=== PATIENT | female | born 1995 | race Caucasian/White ===

== ENCOUNTER 2016-12-01 09:27 | Emergency (ER) | payer OTHER ==
[2016-12-01] MEDS ORDERED: DEXAMETHASONE 10 MG/ML VIAL PO STA (10:04)
[2016-12-01] MEDS ORDERED: IPRATROPIUM/ALBUTEROL 3 ML NEB INH STA (10:04)
[2016-12-01] MEDS ORDERED: DEXAMETHASONE 10 MG/ML VIAL ONE (10:10)
[2016-12-01] MEDS ORDERED: CHERRY SYRUP 10 ML UDC PO ONE (10:11)
[2016-12-01] MEDS ORDERED: IPRATROPIUM/ALBUTEROL 3 ML NEB INH ONE (10:27)
== END 2016-12-01 11:51 | disposition home or self-care (01) ==
DX: J20.9 Acute bronchitis, unspecified (principal); R51 Headache; R11.0 Nausea
CPT/HCPCS: 71020; 94640; 99283; 99284; A9270; J7620

== ENCOUNTER 2017-05-13 08:52 | Outpatient (CLI) | payer OTHER ==
[2017-05-13] MEDS ORDERED: GADOBUTROL 7.5 MMOL/7.5 ML VIAL IVP ONE (11:23)
--- NOTE | 2017-05-14 00:44 | MRI Report ---
MR ANGIOGRAM ABDOMEN WITH AND WITHOUT IV CONTRAST EXAM DATE: 05/13/2017 11:26 AM. CLINICAL HISTORY: Hypertension. COMPARISON: None. TECHNIQUE: Multiplanar breath-hold T1, T2, and DWI sequences obtained through the abdomen [place] [facility] [place] Images obtained prior to and post administration of intravenous contrast. 3-D MR angiogram. FINDINGS: Abdominal aorta and the major branches: Normal caliber of the abdominal aorta and branches. No eviden ce of a mesenteric or renal artery stenosis. Solitary bilateral renal arteries appear normal. Liver: Peripheral right liver T2 hyperintense 40 x 37 x 41 mm lesion is slightly hyperintense on the T1 postcontrast images with possible central scar. Biliary system: Gallbladder and bile ducts appear normal. Pancreas: Normal appearance. Kidneys: Simple left renal 3 cm cyst. Tiny right renal cyst. No hydronephrosis. Spleen: Normal appearance. Adrenals: Normal appearance. Visualized peritoneal cavity and bowel: Unremarkable. No free fluid seen. Other: Unremarkable. IMPRESSION: 1. Normal MR angiogram of the abdomen. No evidence of renal artery stenosis. 2. Right liver 4 cm mass is probably focal nodular hyperplasia. Given size, suggest MRI surveillance at 6 months initially with MRI liver protocol for complete characterization. [facility] Referring Provider Line: [phone] SITE ID: [id number]
== END 2017-05-13 08:53 | disposition home or self-care (01) ==
LOC: DI 08:52
PROVIDERS: ATTEND General Practice
DX: I10 Essential (primary) hypertension (principal); R16.0 Hepatomegaly, not elsewhere classified
CPT/HCPCS: 74185; A9585

== ENCOUNTER 2018-03-10 12:18 | Outpatient (CLI) | payer OTHER ==
[~2018-03-10 12:18] MED LIST: GADOBUTROL 7.5 MMOL/7.5 ML VIAL ONE
[2018-03-10] MEDS ORDERED: GADOBUTROL 7.5 MMOL/7.5 ML VIAL IVP ONE ×2 (13:47)
--- NOTE | 2018-03-12 08:45 | MRI Report ---
Procedure Date: 03/10/2018 Accession Number: [id number] / [id number] Procedure: MRI - Abdomen W/WO CPT Code: FULL RESULT: EXAM: MR ABDOMEN WITH AND WITHOUT CONTRAST (MR LIVER) EXAM DATE: 03/10/2018 01:36 PM. CLINICAL HISTORY: Hepatomegaly. Liver lesion on prior MRA. COMPARISON: Abdominal MR angiography 05/13/2017. TECHNIQUE: Multiplanar breath-hold T1, T2, and DWI sequences obtained through the abdomen on an MR scanner. Images obtained before and after administration of 6 mL Gadavist intravenous contrast. Multiphase postcontrast images obtained of the liver and abdomen. FINDINGS: Lung Bases: Unremarkable. Liver: The liver has normal size, morphology, signal and enhancement. Smooth liver contour. No fatty infiltration. Stable peripheral right liver lobe mildly T2 hyperintense lesion along junction of segments 7 and 8; measuring 4.4 x 3.5 cm on series 1201, previously 4.4 x 4.0 cm. The lesion measures 3.6 cm craniocaudal on series 501 T2 images, previously 3.8 cm. No significant interval change. Lesion is somewhat difficult to measure due to partially lobulated contours. There is avid arterial phase enhancement with fading on subsequent series. However, no washout relative to adjacent liver. Potential central scar. No additional liver lesions identified. Gallbladder: The gallbladder is partially distended and appears normal with no wall thickening or stone. Pancreas: The pancreas appears normal with no mass or ductal dilatation. Spleen: The spleen appears normal. Spleen measures up to 11 cm. Kidneys and Adrenals: The kidneys appear normal with no mass or hydronephrosis. 3.1 cm simple left upper renal cyst. The adrenals appear normal. Bowel: The small bowel and colon appear normal with no inflammation or obstruction. Retroperitoneum: The retroperitoneal structures appear normal with no mass or lymphadenopathy. IMPRESSION: 1. Stable peripheral right liver lobe lesion compatible with focal nodular hyperplasia. 2. Simple left renal cyst. [facility]
== END 2018-03-10 12:19 | disposition home or self-care (01) ==
LOC: DI 12:18
PROVIDERS: ATTEND General Practice
DX: K76.9 Liver disease, unspecified (principal); N28.1 Cyst of kidney, acquired
CPT/HCPCS: 74183; A9585

== ENCOUNTER 2018-04-07 05:43 | Emergency (ER) | payer OTHER ==
--- NOTE | 2018-04-07 06:08 | ED Physician Documentation ---
PD HPI FEMALE - Stated complaint Stated Complaint: KIDNEY/PELVIC PAIN - Chief complaint Chief Complaint: Abd Pain - History obtained from History obtained from: Patient - History of Present Illness Timing - onset: How many months ago (3-4) Timing - duration: Months Pain level max: 2 Associated symptoms: Pelvic pain, Vaginal bleeding, Vaginal discharge, Other ( right flank pain). No: Fever Contributing factors: Not sexually active. No: Similar symptoms before: No diagnosis, Work up / diagnostics (has had significant outpatient w/u including MRI A/P x 2 (most recently one month ago), STD testing (negative results), trials of antifungals and antibiotics (for possible yeast infection and BV, respectively). thus far, no specific diagnosis nor improvement with this measures) - Additional information Additional information: has had several months of pelvic pain, irregular vaginal bleeding, vaginal discharge. tonight she contacted a medical advice hotline and was advised to go to ED, as she has approximately 3-4 days of right flank and RLQ pain, which is a new symptom for her. Review of Systems Constitutional: reports: Reviewed and negative Cardiac: reports: Reviewed and negative Respiratory: reports: Reviewed and negative GI: reports: Abdominal Pain. denies: Nausea, Vomiting, Constipation, Diarrhea : reports: Dysuria, Discharge, Irregular menses (coincided with cessation of BCP (which she was advised to do because she was told the BCP might be a factor in abnormal finding on MRI (liver lesion))). denies: Frequency PD PAST MEDICAL HISTORY - Past Medical History Cardiovascular: None Respiratory: None Endocrine/Autoimmune: None - Past Surgical History Past Surgical History: Yes HEENT: Other - Present Medications Home Medications: Ambulatory Orders Medication Instructions Recorded Confirmed Control 1 tab PO DAILY 06/21/16 12/01/16 Albuterol Sulfate [Proventil Hfa 1 - 2 puffs INH Q4H PRN #1 inhaler 12/01/16 Inhaler] Benzonatate [Tessalon Perle] 100 mg PO BID #14 capsule 12/01/16 Inhaler, Assist Devices [Aerovent 1 each MC PRN PRN #1 spacer 12/01/16 Plus] Omeprazole 0 mg PO DAILY 12/01/16 12/01/16 - Allergies Allergies/Adverse Reactions: Allergies Allergy/AdvReac Type Severity Reaction Status Date / Time No Known Drug Allergies Allergy Verified 04/07/18 05:57 - Social History Does the pt smoke?: No Smoking Status: Never smoker Does the pt drink ETOH?: No Does the pt have substance abuse?: No - Immunizations Immunizations are current?: Yes - POLST Patient has POLST: No PD ED PE NORMAL - Vitals Vital signs reviewed: Yes - General General: Alert and oriented X 3, No acute distress, Well developed/nourished - Cardiac Cardiac: RRR, No murmur - Respiratory Respiratory: No respiratory distress, Clear bilaterally - Abdomen Abdomen: Soft, Non distended, Other (mild RLQ tenderness) - Back Back: No CVA TTP - Derm Derm: Normal color, Warm and dry, No rash Results - Vitals Vitals: Vital Signs - 24 hr 04/07/18 04/07/18 04/07/18 05:54 06:50 07:04 Temperature 36.8 C Heart Rate 69 Respiratory 17 16 16 Rate Blood Pressure 127/80 O2 Saturation 97 04/07/18 08:35 Temperature Heart Rate 63 Respiratory 16 Rate Blood Pressure 128/95 H O2 Saturation 97 Oxygen O2 Source Room air - Labs Labs: Laboratory Tests 04/07/18 04/07/18 04/07/18 06:00 06:55 06:55 WBC 5.9 RBC 4.62 Hgb 13.0 Hct 38.5 MCV 83.3 MCH 28.1 MCHC 33.8 RDW 13.8 Plt Count 272 MPV 7.9 Neut # (Auto) 2.4 Lymph # (Auto) 2.7 [place] # (Auto) 0.6 Eos # (Auto) 0.2 Baso # (Auto) 0.0 Absolute Nucleated RBC 0.00 Nucleated RBC % 0.0 Sodium 138 Potassium 3.0 L Chloride 103 Carbon Dioxide 27 Anion Gap 8.0 BUN 7 Creatinine 0.6 Estimated GFR (MDRD) 125 Glucose 114 H Calcium 9.3 Total Bilirubin 1.3 H AST 49 H ALT 60 Alkaline Phosphatase 59 Total Protein 7.3 Albumin 3.8 Globulin 3.5 Albumin/Globulin Ratio 1.1 Lipase 27 Urine Color LIGHT YELLOW Urine Clarity CLEAR Urine pH 6.5 Ur Specific [place] <=1.005 Urine Protein NEGATIVE Urine Glucose (UA) NEGATIVE Urine Ketones NEGATIVE Urine Occult Blood NEGATIVE Urine Nitrite NEGATIVE Urine Bilirubin NEGATIVE Urine Urobilinogen 0.2 (NORMAL) Ur Leukocyte Esterase NEGATIVE Ur Microscopic Review NOT INDICATED Urine Culture Comments NOT INDICATED Urine HCG, Qual NEGATIVE - Rads (name of study) CT A/P Radiology: Prelim report reviewed, See rad report PD MEDICAL DECISION MAKING - ED course Complexity details: reviewed results, re-evaluated patient, considered differential, d/w patient ED course: NAD during ED stay and declined analgesics, both in ED and as rx - Sepsis Event Vital Signs: Vital Signs - 24 hr 04/07/18 04/07/18 04/07/18 05:54 06:50 07:04 Temperature 36.8 C Heart Rate 69 Respiratory 17 16 16 Rate Blood Pressure 127/80 O2 Saturation 97 04/07/18 08:35 Temperature Heart Rate 63 Respiratory 16 Rate Blood Pressure 128/95 H O2 Saturation 97 Oxygen O2 Source Room air Departure - Departure Disposition: 01 Home, Self Care Clinical Impression: Pelvic pain Condition: Good Instructions: ED Pelvic Pain [facility] Follow-Up: JASON PAGAN III, MD [Primary Care Provider] - Discharge Date/Time: 04/07/18 08:45
[2018-04-07 06:19] LABS: BILIRUBIN,URINE NEGATIVE (NEGATIVE); GLUCOSE, URINE (UA) NEGATIVE (NEGATIVE); KETONES,URINE (UA) NEGATIVE (NEGATIVE); LEUKOCYTE ESTERASE, URINE NEGATIVE (NEGATIVE); NITRITE,URINE NEGATIVE (NEGATIVE); OCCULT BLOOD,URINE NEGATIVE (NEGATIVE); PH,URINE 6.5 PH (5.0-7.5); PROTEIN,URINE NEGATIVE (NEGATIVE); UROBILINOGEN,URINE 0.2 (NORMAL) E.U./dL (NORMAL)
[2018-04-07 06:20] LABS: CLARITY,URINE CLEAR (CLEAR); HCG UR QUAL NEGATIVE
[2018-04-07 07:04] LABS: BASOPHILS % (AUTO) 0.7 %; EOSINOPHILS # (AUTO) 0.2 10^3/uL (0.0-0.7); EOSINOPHILS % (AUTO) 3.8 %; LYMPHOCYTES # (AUTO) 2.7 10^3/uL (1.5-3.5); LYMPHOCYTES % (AUTO) 45.8 %; MEAN CORPUSCULAR HEMOGLOBIN 28.1 pg (27.0-31.0); MEAN CORPUSCULAR HGB CONC 33.8 g/dL (32.0-36.0); MEAN CORPUSCULAR VOLUME 83.3 fL (81.0-99.0); MEAN PLATELET VOLUME 7.9 fL (7.9-10.8); MONOCYTES # (AUTO) 0.6 10^3/uL (0.0-1.0); MONOCYTES % (AUTO) 9.7 %; NEUTROPHILS # (AUTO) 2.4 10^3/uL (1.5-6.6); PLT - PLATELET COUNT 272 10^3/uL (130-450); RED BLOOD COUNT 4.62 10^6/uL (4.20-5.40); RED CELL DISTRIBUTION WIDTH 13.8 % (12.0-15.0); WHITE BLOOD COUNT 5.9 x10^3/uL (4.8-10.8)
[2018-04-07 07:17] LABS: ALBUMIN 3.8 g/dL (3.2-5.5); ALBUMIN/GLOBULIN RATIO 1.1 (1.0-2.2); BILIRUBIN,TOTAL 1.3 mg/dL (0.2-1.0); CALCIUM 9.3 mg/dL (8.5-10.3); CREATININE 0.6 mg/dL (0.4-1.0); TOTAL PROTEIN 7.3 g/dL (6.7-8.2)
--- NOTE | 2018-04-07 08:00 | CT Report ---
Procedure Date: 04/07/2018 Accession Number: [id number] / [id number] Procedure: CT - Abdomen/Pelvis W/O CPT Code: FULL RESULT: EXAM: CT ABDOMEN AND PELVIS EXAM DATE: 04/07/2018 07:06 AM. CLINICAL HISTORY: Right flank pain. COMPARISONS: MRI 03/10/2018. TECHNIQUE: Routine helical CT imaging was performed through the abdomen and pelvis. IV contrast: No. Enteric contrast: No. Reconstructions: Coronal and sagittal. In accordance with CT protocol optimization, one or more of the following dose reduction techniques were utilized for this exam: automated exposure control, adjustment of mA and/or KV based on patient size, or use of iterative reconstructive technique. FINDINGS: Lung Bases: Unremarkable. Liver: In the right hepatic lobe, an ill-defined hypodense lesion measures approximately 4 cm, corresponding to mass seen on recent MRI 03/10/2018 with imaging suggestive of focal nodular hyperplasia. Gallbladder/Bile Ducts: Unremarkable. Spleen: Normal. Pancreas: Normal. Adrenal Glands: Normal. Kidneys: A left renal cyst measures 2.6 cm. Punctate nonobstructive bilateral renal calculi measure 2-3 mm. No hydronephrosis or hydroureter bilaterally. Probable phlebolith in the right pelvis measures 0.7 cm (axial image 111). Peritoneal Cavity/Bowel: No free fluid, free air or adenopathy. No masses or acute inflammatory process. The appendix is not visualized, however no secondary signs of inflammation in the right lower quadrant. Pelvic Organs: The bladder and visualized pelvic organs are within normal limits. Vasculature: No aneurysms or other significant abnormality. Bones: No significant abnormality. Other: None. IMPRESSION: Small bilateral nonobstructive renal calculi. No evidence for hydronephrosis or hydroureter. [facility]
[2018-04-07] MEDS ORDERED: POTASSIUM BICARB 25 MEQ TABLET PO STA ×2 (08:25→08:26)
[2018-04-07 08:36] VITALS: BP 128/95
== END 2018-04-07 08:45 | disposition home or self-care (01) ==
LOC: ED 05:43
DX: R10.2 Pelvic and perineal pain (principal); N20.0 Calculus of kidney
CPT/HCPCS: 74176; 80053; 81003; 81025; 83690; 85025; 99283; A9270; 36415; 81001; 87086

== ENCOUNTER 2018-11-27 03:10 | Emergency (ER) | payer OTHER ==
--- NOTE | 2018-11-27 03:13 | ED Physician Documentation ---
PD HPI URI - Stated complaint Stated Complaint: SORE THROAT - History of Present Illness Timing - onset: How many days ago (2) Timing duration: Days (2) Timing details: Abrupt onset, Still present Associated symptoms: Fever, Sinus pain, Sore throat, Swollen nodes. No: Nasal congestion, Productive cough Contributing factors: Travel (was in [place] for a week and returned few days ago.) Similar symptoms before: Has not had sx before Review of Systems Constitutional: reports: Fever, Myalgias Nose: reports: Sinus pressure / pain. 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 : None HEENT: None Psych: None Musculoskeletal: None - Past Surgical History Past Surgical History: Yes HEENT: Other - Present Medications Home Medications: Ambulatory Orders Medication Instructions Recorded Confirmed Control 1 tab PO DAILY 06/21/16 12/01/16 Albuterol Sulfate [Proventil Hfa 1 - 2 puffs INH Q4H PRN #1 inhaler 12/01/16 Inhaler] Benzonatate [Tessalon Perle] 100 mg PO BID #14 capsule 12/01/16 Inhaler, Assist Devices [Aerovent 1 each MC PRN PRN #1 spacer 12/01/16 Plus] Omeprazole 0 mg PO DAILY 12/01/16 12/01/16 Cephalexin [Keflex] 500 mg PO TID #21 capsule 11/27/18 Dexamethasone [Decadron] 4 mg PO DAILY #5 tablet 11/27/18 Hydrocodone/Acetaminophen [[place] 1 each PO Q6H PRN #15 tablet 11/27/18 5-325 Tablet] - Allergies Allergies/Adverse Reactions: Allergies Allergy/AdvReac Type Severity Reaction Status Date / Time No Known Drug Allergies Allergy Verified 11/27/18 03:19 - Social History Does the pt smoke?: No Smoking Status: Never smoker Does the pt drink ETOH?: No Does the pt have substance abuse?: No - Immunizations Immunizations are current?: Yes - POLST Patient has POLST: No PD ED PE NORMAL - Vitals Vital signs reviewed: Yes - General General: Alert and oriented X 3, No acute distress, Well developed/nourished - HEENT HEENT: No: Pharynx benign (redness without exudate, but she is spitting up saliva at times due to the pain of it. No obvious peritonsillar swelling. ) - Neck Neck: Supple, no meningeal sign, Other (anterior adenopathy which is tender. ) - Cardiac Cardiac: RRR, No murmur - Respiratory Respiratory: Clear bilaterally - Abdomen Abdomen: Soft, Non tender - Derm Derm: Normal color, Warm and dry, No rash Results - Vitals Vitals: Vital Signs - 24 hr 11/27/18 03:17 Temperature 36.9 C Heart Rate 84 Respiratory 16 Rate Blood Pressure 128/89 H O2 Saturation 99 Oxygen O2 Source Room air - Labs Labs: Laboratory Tests 11/27/18 03:24 Group A Strep Rapid Negative PD MEDICAL DECISION MAKING - ED course Complexity details: considered differential (rapid test is negative, but her symptoms are concerning for strep or early peritonsillar infection, so consider more group c strep or such. I will treat empirically pending cultures. ), d/w patient Departure - Departure Disposition: Home, Self Care Clinical Impression: Acute infective pharyngitis Condition: Stable Record reviewed to determine appropriate education?: Yes Instructions: ED Strep Pharyngitis Poss Follow-Up: JASON PAGAN III, MD [Primary Care Provider] - Prescriptions: Cephalexin [Keflex] 500 mg PO TID #21 capsule Dexamethasone [Decadron] 4 mg PO DAILY #5 tablet Hydrocodone/Acetaminophen [[place] 5-325 Tablet] 1 each PO Q6H PRN #15 tablet PRN Reason: Pain Comments: Your rapid strep test is negative but symptoms are suspicious for bacterial infection. We can treat her with a steroid for inflammation and added pain medicine. These would be appropriate for viral or bacterial. We can start an antibiotic cephalexin to cover for possible strep at least pending the culture result in a couple of days. If the culture is negative as well then you can stop the antibiotics. Follow-up with your primary care in the next couple of days if not improving. Drink lots of fluids and stay well-hydrated and use Tylenol or ibuprofen if needed for fevers or pains. Add hydrocodone if needed for worse pain. Forms: Activity restrictions
[2018-11-27] MEDS ORDERED: DEXAMETHASONE 10 MG/ML VIAL PO STA (03:33)
[2018-11-27] MEDS ORDERED: BENZONATATE 100 MG CAPSULE PO STA (03:33)
[2018-11-27] MEDS ORDERED: diphenhydrAMINE ELIXIR 25 MG/10 ML UDC PO STA (03:33)
[2018-11-27] MEDS ORDERED: HYDROcod/ACETAM 5/325 MG TABLET PO STA (03:33)
[2018-11-27] MEDS ORDERED: cephALEXin 250 MG CAPSULE PO STA (03:50)
[2018-11-27 03:58] VITALS: BP 131/87
== END 2018-11-27 04:02 | disposition home or self-care (01) ==
LOC: ED 03:10
DX: J02.9 Acute pharyngitis, unspecified (principal)
CPT/HCPCS: 87070; 87430; 99283; A9270

== ENCOUNTER 2019-07-04 08:42 | Emergency (ER) | payer OTHER ==
--- NOTE | 2019-07-04 09:00 | ED Physician Documentation ---
PD HPI UPPER EXT INJURY - Stated complaint Stated Complaint: HAND INJURY - Chief complaint Chief Complaint: Trauma Ext - History obtained from History obtained from: Patient - History of Present Illness Location: Left, Hand Type of injury: Other (Patient states that she had her left hand against the wall today. Occurred approximately 2 hours ago.) Timing - onset: Today Timing - duration: Hours (2) Timing - details: Abrupt onset Pain level max: 8 Pain level now: 5 Improved by: Rest, Ice, Immobilization Worsened by: Moving, Palpating Associated symptoms: Swelling, Discolored (Bruising). 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 : None HEENT: None Psych: None Musculoskeletal: None - Past Surgical History Past Surgical History: Yes HEENT: Other - Present Medications Home Medications: Ambulatory Orders Medication Instructions Recorded Confirmed Control 1 tab PO DAILY 06/21/16 12/01/16 Albuterol Sulfate [Proventil Hfa 1 - 2 puffs INH Q4H PRN #1 inhaler 12/01/16 Inhaler] Benzonatate [Tessalon Perle] 100 mg PO BID #14 capsule 12/01/16 Inhaler, Assist Devices [Aerovent 1 each MC PRN PRN #1 spacer 12/01/16 Plus] Omeprazole 0 mg PO DAILY 12/01/16 12/01/16 Cephalexin [Keflex] 500 mg PO TID #21 capsule 11/27/18 Hydrocodone/Acetaminophen [[place] 1 each PO Q6H PRN #15 tablet 11/27/18 5-325 Tablet] dexAMETHasone [Decadron] 4 mg PO DAILY #5 tablet 11/27/18 Ibuprofen [Motrin] 800 mg PO Q8H PRN #30 tablet 07/04/19 - Allergies Allergies/Adverse Reactions: Allergies Allergy/AdvReac Type Severity Reaction Status Date / Time No Known Drug Allergies Allergy Verified 07/04/19 08:50 - Social History Does the pt smoke?: No Smoking Status: Never smoker Does the pt drink ETOH?: No Does the pt have substance abuse?: No - Immunizations Immunizations are current?: Yes - POLST Patient has POLST: No PD ED PE NORMAL - Vitals Vital signs reviewed: Yes - General General: Alert and oriented X 3, No acute distress - HEENT HEENT: Moist mucous membranes - Neck Neck: Supple, no meningeal sign - Derm Derm: Warm and dry - Extremities Extremities: Other (Left hand tenderness palpation, swelling and ecchymosis to the distal aspect of the left fourth and fifth metacarpal. Neurovascular intact. No tenderness over the wrist or forearm) - Neuro Neuro: Alert and oriented X 3 Results - Vitals Vitals: Vital Signs - 24 hr 07/04/19 07/04/19 08:48 10:28 Temperature 36.8 C 36.6 C Heart Rate 82 68 Respiratory 14 18 Rate Blood Pressure 128/96 H 139/85 H O2 Saturation 98 100 Oxygen O2 Source Room air - Rads (name of study) Left hand x-ray Radiology: Prelim report reviewed, EMP read contemporaneously, See rad report (Mildly impacted and angulated fifth metacarpal neck fracture. ) Procedures - Splint (location) L hand Splint applied by: Physician, Tech Type of splint: Fiberglass, Ulnar gutter Other: Patient tolerated well, No complications, Neurovascular intact, Sling provided PD MEDICAL DECISION MAKING - ED course Complexity details: reviewed results, re-evaluated patient, considered differ ential, d/w patient ED course: Patient with a left fifth metacarpal fracture, acutely angulated. Placed in an ulnar gutter splint. Neurovascularly intact. Will follow-up with orthopedics. Patient counseled regarding signs and symptoms for which I believe and urgent re-evaluation would be necessary. Patient with good understanding of and agreement to plan and is comfortable going home at this time This document was made in part using voice recognition software. While efforts are made to proofread this document, sound alike and grammatical errors may occur. Departure - Departure Disposition: 01 Home, Self Care Clinical Impression: Fracture of fifth metacarpal bone of left hand Qualifiers: Encounter type: initial encounter Fracture type: closed Metacarpal location: unspecified portion of metacarpal Fracture alignment: nondisplaced Qualified Code(s): S62.307A - Unspecified fracture of fifth metacarpal bone, left hand, initial encounter for closed fracture Condition: Good Instructions: ED Fx Hand Closed Follow-Up: JASON PAGAN III, MD [Primary Care Provider] - Within 1 week Prescriptions: Ibuprofen [Motrin] 800 mg PO Q8H PRN #30 tablet PRN Reason: PAIN &/OR FEVER Comments: Keep the splint in place. Return if you worsen. Follow-up with your doctor and orthopedist when you return from leave. Discharge Date/Time: 07/04/19 11:46
--- NOTE | 2019-07-04 09:44 | XRAY Report ---
Reason: L hand pain s/p hitting a wall Procedure Date: 07/04/2019 Accession Number: [id number] / [id number] Procedure: XR - Hand 3 View LT CPT Code: FULL RESULT: EXAM: LEFT HAND RADIOGRAPHY EXAM DATE: 07/04/2019 09:21 AM. CLINICAL HISTORY: Left hand pain after punching a wall. COMPARISON: None. TECHNIQUE: 3 views. FINDINGS: Bones: Mildly impacted fracture of the fifth metacarpal neck, with mild anterior angulation at the fracture site. Joints: Normal. No subluxations. Soft Tissues: Swelling overlying the fracture site. IMPRESSION: Mildly impacted and angulated fifth metacarpal neck fracture. [facility]
[2019-07-04 10:28] VITALS: BP 139/85
== END 2019-07-04 11:46 | disposition home or self-care (01) ==
LOC: ED 08:42
DX: S62.337A Displaced fracture of neck of fifth metacarpal bone, left hand, initial encounter for closed fracture (principal); W22.01XA Walked into wall, initial encounter
CPT/HCPCS: 29125; 99283

== ENCOUNTER 2020-03-26 06:24 | Emergency (ER) | payer OTHER ==
--- NOTE | 2020-03-26 07:02 | ED Physician Documentation ---
History of Present Illness - Stated complaint Stated Complaint: R/L HAND INJURY - Chief complaint Chief Complaint: Ext Problem - Additonal information Additional information: Patient comes emergency department complaining of pain in bilateral hands over the third MCP joints after punching her refrigerator multiple times yesterday. Patient states this happened about 22:30 last night. She states that she became upset after hearing and audio of a disturbing event that happened to her personal friend and coworker, and started punching her refrigerator. She states this lasted 10 to 15 minutes. Patient states that her joints were more swollen last night than they are now, but that she still has pain with movement. However, she does note that despite some swelling and bruising, she does have full range of motion of her fingers at the IP and MCP joints. Patient denies wrist pain or elbow pain. She is not injured in any other way. No other complaints at this time. Review of Systems Ten Systems: 10 systems reviewed and negative Constitutional: reports: Reviewed and negative Eyes: reports: Reviewed and negative Ears: reports: Reviewed and negative Nose: reports: Reviewed and negative Throat: reports: Reviewed and negative Cardiac: reports: Reviewed and negative Respiratory: reports: Reviewed and negative GI: reports: Reviewed and negative : reports: Reviewed and negative Skin: reports: Reviewed and negative Musculoskeletal: reports: Joint pain, Extremity swelling, Joint swelling Neurologic: reports: Reviewed and negative Psychiatric: reports: Reviewed and negative Endocrine: reports: Reviewed and negative Immunocompromised: reports: Reviewed and negative PD PAST MEDICAL HISTORY - Past Medical History Past Medical History: Yes Cardiovascular: Hypertension Respiratory: None Neuro: None Endocrine/Autoimmune: None GI: None 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 HEENT: None Psych: None Musculoskeletal: None Derm: None - Past Surgical History Past Surgical History: Yes Ortho: Other HEENT: Other - Present Medications Home Medications: Ambulatory Orders Medication Instructions Recorded Confirmed Control 1 tab PO DAILY 06/21/16 12/01/16 Albuterol Sulfate [Proventil Hfa 1 - 2 puffs INH Q4H PRN #1 inhaler 12/01/16 Inhaler] Benzonatate [Tessalon Perle] 100 mg PO BID #14 capsule 12/01/16 Inhaler, Assist Devices [Aerovent 1 each MC PRN PRN #1 spacer 12/01/16 Plus] Omeprazole 0 mg PO DAILY 12/01/16 12/01/16 Cephalexin [Keflex] 500 mg PO TID #21 capsule 11/27/18 Hydrocodone/Acetaminophen [[place] 1 each PO Q6H PRN #15 tablet 11/27/18 5-325 Tablet] dexAMETHasone [Decadron] 4 mg PO DAILY #5 tablet 11/27/18 Ibuprofen [Motrin] 800 mg PO Q8H PRN #30 tablet 07/04/19 - Allergies Allergies/Adverse Reactions: Allergies Allergy/AdvReac Type Severity Reaction Status Date / Time No Known Drug Allergies Allergy Verified 03/26/20 06:35 - Social History Does the pt smoke?: No Smoking Status: Never smoker Does the pt drink ETOH?: No Does the pt have substance abuse?: No - Immunizations Immunizations are current?: Yes - POLST Patient has POLST: No PD ED PE NORMAL - Vitals Vital signs reviewed: Yes - General General: Alert and oriented X 3, No acute distress, Well developed/nourished - HEENT HEENT: Atraumatic, PERRL, EOMI, Moist mucous membranes - Neck Neck: Supple, no meningeal sign - Cardiac Cardiac: Strong equal pulses - Respiratory Respiratory: No respiratory distress - Derm Derm: Warm and dry, No rash, Other (Contusion over Kim of bilateral hands, and especially involving the second and third MCP joints and adjacent skin/tissue.) - Extremities Extremities: No deformity, Other (Moderate tenderness palpation of her bilateral third MCP joints. Mild edema. Full range of motion of all fingers at all kathryn ints. No wrist tenderness.) - Neuro Neuro: Alert and oriented X 3 - Psych Psych: Normal mood, Normal affect Results - Vitals Vitals: Oxygen O2 Source Room air - Rads (name of study) R hand xr Radiology: Final report received, EMP read indepedently, See rad report (Unremarkable) L hand XR Radiology: Final report received, EMP read indepedently, See rad report (unremarkable) PD MEDICAL DECISION MAKING - ED course Complexity details: reviewed results, re-evaluated patient, considered differential, d/w patient ED course: Patient had full range of motion of her fingers, and I suspected most likely s oft tissue injury. However, given the reported nature of the patient's injury, as well as the ongoing pain with range of motion, I did send the patient for x- rays of her bilateral hands, which were unremarkable. We have discussed home management of the symptoms, as well as usual indications for return. Departure - Departure Disposition: 01 Home, Self Care Clinical Impression: Contusion of hand(s) Qualifiers: Encounter type: initial encounter Laterality: unspecified laterality Qualified Code(s): S60.229A - Contusion of unspecified hand, initial encounter Condition: Stable Instructions: ED Contusion Hand Comments: Your x-rays look good. There is no evidence of any sort of injury to the bones. Please continue to use ice packs, as needed. You may also use ibuprofen and Tylenol as needed for any discomfort. Avoid any strenuous or forceful activities with your fingers/joints until they are feeling better. Discharge Date/Time: 03/26/20 07:43
[2020-03-26 07:44] VITALS: BP 124/68
--- NOTE | 2020-03-26 08:20 | XRAY Report ---
PROCEDURE: Hand 3 View BILAT INDICATIONS: Bilat. hand pain TECHNIQUE: 3 views of the bilateral hand(s) acquired. COMPARISON: None FINDINGS: There is no acute fracture. There is a remote left fifth distal metacarpal fracture (mistakenly descr ibed as on the right in the preliminary report). Regional soft tissues unremarkable. IMPRESSION: No acute finding. Reviewed by: Janak Loja MD on 03/26/2020 8:18 AM PDT Approved by: Janak Loja MD on 03/26/2020 8:18 AM PDT Station ID: [id number]
== END 2020-03-26 07:43 | disposition home or self-care (01) ==
LOC: ED 06:24
DX: S60.222A Contusion of left hand, initial encounter (principal); S60.221A Contusion of right hand, initial encounter; W22.09XA Striking against other stationary object, initial encounter; Y93.89 Activity, other specified; Y92.009 Unspecified place in unspecified non-institutional (private) residence as the place of occurrence of the external cause; I10 Essential (primary) hypertension
CPT/HCPCS: 99282; 99283

== ENCOUNTER 2020-07-06 15:02 | Outpatient (CLI) | payer OTHER ==
--- NOTE | 2020-07-06 17:29 | MRI Report ---
PROCEDURE: Brain W/O INDICATIONS: TINNITUS TECHNIQUE: Noncontrast axial T1 spin echo, axial T2 fast spin echo, sagittal and axial FLAIR, coronal T2 fast sp in echo, axial gradient echo, axial diffusion and ADC through the brain. In this patient, thin secti on T2-weighted FFE images were obtained through the internal auditory canals. COMPARISON: None. FINDINGS: Image quality: Diagnostic, with note made of motion artifact. CSF Spaces: Basal cisterns are patent. No extra-axial fluid collections. Ventricles are normal in size and shape. Brain: No intracranial masses or hemorrhage. Sexton/white matter interface is normal. Brainstem appe ars normal. Diffusion-weighted images demonstrate no acute ischemic insult. No chronic ischemic ins ults. Normal intravascular flow voids are present. In this patient with this given history, scrutiny is given to the internal auditory canals and the ce rebellopontine angle cisterns. To the limits of this study that was performed without contrast, no ma sses can be seen within these regions. Note is made of a vascular loop into the proximal medial aspec t of the right internal auditory canal, as on series 1101 images 29 through 33. Skull and face: Calvarium has normal marrow signal. Orbits appear normal. Sinuses: Sinuses and mastoids are clear. IMPRESSION: No masses are seen to explain the patient's presenting history of tinnitus. There is a vascular loop seen into the right internal auditory canal. Please correlate with precise p atient history for right pulsatile tinnitus. Reviewed by: Jagjit Patrick MD on 07/06/2020 4:28 PM SIMON Approved by: Jagjit Patrick MD on 07/06/2020 4:28 PM SIMON Station ID: [id number]
== END 2020-07-06 15:03 | disposition home or self-care (01) ==
LOC: DI 15:02
PROVIDERS: ATTEND Family Medicine
DX: H93.12 Tinnitus, left ear (principal); H91.92 Unspecified hearing loss, left ear
CPT/HCPCS: 70551

== ENCOUNTER 2020-12-01 00:22 | Emergency (ER) | payer OTHER ==
--- NOTE | 2020-12-01 00:28 | ED Physician Documentation ---
PD HPI HEENT - Stated complaint Stated Complaint: MOUTH PX, SWOLLEN CHIN - History obtained from History obtained from: Patient - History of Present Illness Timing - onset: How many days ago (2) Timing - duration: Days (2) Timing - details: Gradual onset Pain level now: 6 Location: Other (chin) Improves: Nothing Worsens: Other (palpation) Associated symptoms: Facial swelling. No: Fever, Trismus, Unable to swallow Similar symptoms before: Has not had sx before Recently seen: Not recently seen - Additional information Additional information: c/o 2 days of worsening facial swelling and tenderness. she says "it started as a pimple" on her chin and 2 days ago she punctured it with a needle; she describes small amount of pus discharge but no change in size of the area aff ected at the time. Subsequent to puncturing the lesion, it steadily grew in size and intensity of pain. denies h/o similar symptoms. 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 HEENT: None Psych: None Musculoskeletal: None Derm: None - Past Surgical History Past Surgical History: Yes Ortho: Other HEENT: Other - Present Medications Home Medications: Ambulatory Orders Medication Instructions Recorded Confirmed Control 1 tab PO DAILY 06/21/16 12/01/16 Doxycycline Hyclate [Vibramycin] 100 mg PO BID #20 cap 12/01/20 Fluticasone [Flonase] 1 sprays MCKAYLA BID PRN 12/01/20 12/01/20 HYDROcod/ACETAM 5/325 [[place] 5/325] 1 - 2 tablet PO Q6H PRN #14 tablet 12/01/20 Loratadine [Claritin] 5 mg PO 12/01/20 Mirtazapine [Remeron] 0.25 tab PO 12/01/20 Sertraline HCl [Zoloft] 100 mg PO 12/01/20 - Allergies Allergies/Adverse Reactions: Allergies Allergy/AdvReac Type Severity Reaction Status Date / Time No Known Drug Allergies Allergy Verified 12/01/20 00:33 - Social History Does the pt smoke?: No Smoking Status: Never smoker Does the pt drink ETOH?: No Does the pt have substance abuse?: No - Immunizations Immunizations are current?: Yes - POLST Patient has POLST: No PD ED PE NORMAL - Vitals Vital signs reviewed: Yes - General General: Alert and oriented X 3, No acute distress, Well developed/nourished PD ED PE EXPANDED - HEENT HEENT Visual: 1 - rash (confluent erythema with sharp margins), swelling (firm swelling without fluctuance or discharge), tenderness Results - Vitals Vitals: Vital Signs - 24 hr 12/01/20 00:25 Temperature 36.9 C Heart Rate 82 Respiratory 16 Rate Blood Pressure 135/98 H O2 Saturation 99 Oxygen O2 Source Room air PD MEDICAL DECISION MAKING - ED course Complexity details: considered differential, d/w patient ED course: facial cellulitis involving chin but not mandible or neck; no evidence of submandibular space involvement (afebrile, no c/o mouth pain. her voice is clear, no drooling, no trismus). given IM rocephin and PO doxycycline with rx for doxycycline and vicodin for pain control. Given careful instruction regarding signs/symptoms that would warrant return to ED, and encouraged to follow up with PMD in 3-5 days Departure - Departure Disposition: 01 Home, Self Care Clinical Impression: Facial cellulitis Condition: Good Instructions: ED Cellulitis Facial Prescriptions: HYDROcod/ACETAM 5/325 [[place] 5/325] 1 - 2 tablet PO Q6H PRN #14 tablet PRN Reason: Pain Doxycycline Hyclate [Vibramycin] 100 mg PO BID #20 cap Comments: Follow up with your primary care provider in 3-5 days for recheck of the infection Discharge Date/Time: 12/01/20 01:18
[2020-12-01 00:33] VITALS: BP 135/98
[2020-12-01] MEDS ORDERED: DOXYCYCLINE 100 MG TABLET PO STA (00:45)
[2020-12-01] MEDS ORDERED: LIDOCAINE 1% 2 ML VIAL MC ONE (00:58)
[2020-12-01] MEDS ORDERED: HYDROcod/ACET 5/325 Prepack 4 PO STA (00:58)
[2020-12-01] MEDS ORDERED: cefTRIAXone 1 GM VIAL IM STA (00:58)
== END 2020-12-01 01:18 | disposition home or self-care (01) ==
LOC: ED 00:22
DX: L03.211 Cellulitis of face (principal)
CPT/HCPCS: 96372; 99283; 99284

== ENCOUNTER 2020-12-01 18:53 | Emergency (ER) | payer OTHER ==
--- NOTE | 2020-12-01 20:08 | ED Physician Documentation ---
PD HPI WOUND RECHECK - Stated complaint Stated Complaint: SWOLLEN RT FACE/PX - Chief complaint Chief Complaint: General - Histroy obtained from History obtained from: Patient - History of Present Illness Location: Face (on right chin) Timing - onset: How many days ago (few) Associated symptoms: Fever, Redness, Swelling, Drainage (only little dribbles at times) Recently seen: Emergency Dept (yesterday and was Dx with facial cellulitis/early abscess and Rx Doxycycline. Patient says the swelling and pain are worse today. 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 HEENT: None Psych: Post traumatic stress disorder Musculoskeletal: None Derm: None - Past Surgical History Past Surgical History: Yes Ortho: Other HEENT: Other - Present Medications Home Medications: Ambulatory Orders Medication Instructions Recorded Confirmed Control 1 tab PO DAILY 06/21/16 12/01/20 Doxycycline Hyclate [Vibramycin] 100 mg PO BID #20 cap 12/01/20 12/01/20 Fluticasone [Flonase] 1 sprays MCKAYLA BID PRN 12/01/20 12/01/20 HYDROcod/ACETAM 5/325 [[place] 5/325] 1 - 2 ea PO Q6H PRN #12 tablet 12/01/20 HYDROcod/ACETAM 5/325 [[place] 5/325] 1 - 2 tablet PO Q6H PRN #14 tablet 12/01/20 12/01/20 Loratadine [Claritin] 5 mg PO DAILY 12/01/20 12/01/20 Mirtazapine [Remeron] 0.25 tab PO HS PRN 12/01/20 12/01/20 SUMAtriptan [Imitrex] 25 mg PO ONCE PRN 12/01/20 12/01/20 Sertraline HCl [Zoloft] 100 mg PO DAILY 12/01/20 12/01/20 cephALEXin [Keflex] 500 mg PO QID 5 Days #20 cap 12/01/20 - Allergies Allergies/Adverse Reactions: Allergies Allergy/AdvReac Type Severity Reaction Status Date / Time No Known Drug Allergies Allergy Verified 12/01/20 19:01 - Social History Does the pt smoke?: No Smoking Status: Never smoker Does the pt drink ETOH?: No Does the pt have substance abuse?: No - Immunizations Immunizations are current?: Yes - POLST Patient has POLST: No PD ED PE NORMAL - Vitals Vital signs reviewed: Yes - General General: Alert and oriented X 3, Well developed/nourished, Other (appears uncomfortable) - HEENT HEENT: Dentition benign - Neck Neck: Supple, no meningeal sign, No adenopathy, Other (right chin with local area of swelling, redness, and marked tenderness. No fluctuance. Bedside U/S showed local swelling without fluid collection. ) - Cardiac Cardiac: RRR, No murmur - Respiratory Respiratory: Clear bilaterally - Derm Derm: Normal color, Warm and dry, Other (chin local swelling and tenderness. ) Results - Vitals Vitals: Vital Signs - 24 hr 12/01/20 12/01/20 12/01/20 19:02 19:59 21:08 Temperature 36.9 C 36.9 C 37.3 C Heart Rate 101 H 101 H 90 Respiratory 18 18 12 Rate Blood Pressure 145/99 H 145/99 H 138/90 H O2 Saturation 98 98 99 Oxygen O2 Source Room air PD MEDICAL DECISION MAKING - ED course Complexity details: considered differential (seen yesterday and Rx appropriate staph coverage with Doxy, but has increased pain and swelling. No drainable abscess right now. Will give pain meds and will broaden coverage to include strep epidermidis in case, with Keflex. ), d/w patient Departure - Departure Disposition: Home, Self Care Clinical Impression: Cellulitis and abscess of face Condition: Stable Record reviewed to determine appropriate education?: Yes Instructions: ED Cellulitis Facial Follow-Up: EVANGELINA STAPLETON MD [Primary Care Provider] - Prescriptions: cephALEXin [Keflex] 500 mg PO QID 5 Days #20 cap HYDROcod/ACETAM 5/325 [[place] 5/325] 1 - 2 ea PO Q6H PRN #12 tablet PRN Reason: Pain Comments: At this point, there is no drainable abscess noted on bedside ultrasound. Obviously a lot of localized swelling. Continue with warm compresses to the area to promote any further small drainage that might occur. It may be the doxycycline has not had time yet to really he had on the infection, though it might be expected that it plateaued the symptoms even if not improved a lot. Given the increase in symptoms, will expand the antibiotic coverage by adding cephalexin 4 times a day for the next 5 days. Continue both antibiotics. Use ibuprofen 2-3 times a day. Add Tylenol or 1 to 2 tablets of the hydrocodone every 4-6 hours for pain. I would anticipate plateauing and improvement of the symptoms over the next couple of days. Return if consistent worsening. Or follow-up with your primary care. Discharge Date/Time: 12/01/20 21:30
[2020-12-01] MEDS ORDERED: cephALEXin 250 MG CAPSULE PO STA (20:23)
[2020-12-01] MEDS ORDERED: HYDROmorphone 2 MG/ML VIAL IM STA (20:23)
[2020-12-01] MEDS ORDERED: KETOROLAC 30 MG/ML VIAL IM STA (20:23)
[2020-12-01 21:09] VITALS: BP 138/90
== END 2020-12-01 21:30 | disposition home or self-care (01) ==
LOC: ED 18:53
DX: L02.01 Cutaneous abscess of face (principal); L03.211 Cellulitis of face
CPT/HCPCS: 96372; 99283; 99284; A9270; J1170

== ENCOUNTER 2021-03-20 03:41 | Emergency (ER) | payer OTHER ==
[2021-03-20 03:52] VITALS: BP 115/61
--- NOTE | 2021-03-20 05:49 | ED Physician Documentation ---
PD HPI SKIN - Stated complaint Stated Complaint: LUMP BEHIND R EAR - Chief complaint Chief Complaint: Heent - History obtained from History obtained from: Patient - History of Present Illness Timing - onset: How many weeks ago (1) Timing - details: Gradual onset Pain level now: 2 Location: Neck Quality / character: Painful, Raised, Swelling Associated symptoms: No: Fever Similar symptoms before: Has not had sx before Recently seen: Not recently seen - Additional information Additional information: patient had bar piercing right ear 1.5 weeks ago and 1 week ago developed small, tender lump posterior and inferior to the right ear. 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 HEENT: None Psych: Post traumatic stress disorder Musculoskeletal: None Derm: None - Past Surgical History Past Surgical History: Yes Ortho: Other HEENT: Other - Present Medications Home Medications: Ambulatory Orders Medication Instructions Recorded Confirmed Control 1 tab PO DAILY 06/21/16 03/20/21 Fluticasone [Flonase] 1 sprays MCKAYLA BID PRN 12/01/20 03/20/21 Loratadine [Claritin] 5 mg PO DAILY 12/01/20 03/20/21 Mirtazapine [Remeron] 0.25 tab PO HS PRN 12/01/20 03/20/21 SUMAtriptan [Imitrex] 25 mg PO ONCE PRN 12/01/20 03/20/21 Sertraline HCl [Zoloft] 100 mg PO DAILY 12/01/20 03/20/21 cephALEXin [Keflex] 500 mg PO QID 5 Days #20 cap 12/01/20 Doxycycline Monohydrate 100 mg PO BID #19 03/20/21 - Allergies Allergies/Adverse Reactions: Allergies Allergy/AdvReac Type Severity Reaction Status Date / Time No Known Drug Allergies Allergy Verified 03/20/21 03:46 - Social History Does the pt smoke?: No Smoking Status: Never smoker Does the pt drink ETOH?: No Does the pt have substance abuse?: No - Immunizations Immunizations are current?: Yes - POLST Patient has POLST: No PD ED PE NORMAL - Vitals Vital signs reviewed: Yes - General General: Alert and oriented X 3, No acute distress, Well developed/nourished PD ED PE EXPANDED - HEENT HEENT Visual: 1 - deformity (piercing (not true deformity)) 2 - rash (faint erythema without swelling or fluctuance) 3 - swelling (1cm diameter minimally tender, nonerythematous lymph node), tenderness Results - Vitals Vitals: Oxygen O2 Source Room air PD MEDICAL DECISION MAKING - ED course Complexity details: considered differential, d/w patient Departure - Departure Disposition: 01 Home, Self Care Clinical Impression: Reactive lymphadenopathy Condition: Good Instructions: ED Cervical Adenitis Abx Tx Follow-Up: EVANGELINA STAPLETON MD [Primary Care Provider] - (3-5 days if not improving ) Prescriptions: Doxycycline Monohydrate 100 mg PO BID #19 Discharge Date/Time: 03/20/21 06:22
[2021-03-20] MEDS ORDERED: DOXYCYCLINE 100 MG TABLET PO STA (06:13)
== END 2021-03-20 06:22 | disposition home or self-care (01) ==
LOC: ED 03:41
DX: R59.0 Localized enlarged lymph nodes (principal); I10 Essential (primary) hypertension
CPT/HCPCS: 99283; A9270